=== PATIENT | female | born 1960 | race Caucasian/White ===

== ENCOUNTER 2017-01-07 10:58 | Day surgery (SDC) | payer OTHER ==
[~2017-01-07] VITALS: Ht 153.7 cm; Wt 99.8 kg
[~2017-01-07 10:58] MED LIST: 0.9% Sodium Chloride 1,000 ML IV SCH; AMLO5TAB2 PO; ASPI-973 PO; FLUT15.88 NS; MULT-666 PO; PRAV40TA PO; SOFO1TAB PO; Sodium Chloride LOK Flush 10 mL Syringe IV PRN; fentaNYL-PF 50 mCg/mL 2 mL Inj IVPUSH PRN
[2017-01-07 11:45] VITALS: BP 130/84; PULSE 72; RESP 16; O2SAT 96
[2017-01-07 12:24] VITALS: BP 120/77; PULSE 79; RESP 16; O2SAT 91
[2017-01-07 12:34] VITALS: BP 137/69; PULSE 88; RESP 16; O2SAT 93
[2017-01-07 12:39] VITALS: BP 139/72; PULSE 79; RESP 14; O2SAT 95
--- NOTE | 2017-01-07 14:19 | ENDO ---
[address] [address] ENDOSCOPY PROCEDURE PATIENT: MARTHA ROB : 1960 MR#: [id number] ADMIT: 01/07/2017 JOB ID: [id number] PROCEDURE: Esophagogastroduodenoscopy. INDICATION: Variceal screening. The patient's ASA classification is II. Mallampati score is II. MEDICATIONS: Versed 5 mg, fentanyl 100 mcg. INSTRUMENT USED: [id number]. PROCEDURE DETAILS: After informed consent was obtained, the patient was brought into the GI suite, where she was placed on oxygen via nasal cannula and monitored with continuous pulse oximeter, telemetry, and blood pressure monitoring. A time-out was performed. Then, she was placed in a left lateral decubitus position and medications were administered for sedation. A bite block was placed. Standard EGD scope was inserted through the bite block and advanced under direct visualization to the second portion of the duodenum without difficulty. FINDINGS: 1. Normal appearing duodenal bulb, first and second portion. 2. Normal appearing pylorus. 3. The mucosa in the antrum and body of the stomach had a mosaic appearance consistent with portal gastropathy. 4. Retroflexed views in the gastric body revealed no gastric varices. 5. The GE junction was slightly irregular at 41 cm. Just at the GE junction and extending up proximally, there were two linear areas of ulcerated mucosa suggestive of ulcerative esophagitis. The remainder of the esophagus otherwise unremarkable. IMPRESSION: 1. Portal gastropathy. 2. [place] class A ulcerative esophagitis. RECOMMENDATIONS: 1. Omeprazole 20 mg p.o. daily. 2. Reflux precautions. 3. Weight loss. COMPLICATIONS: None. ESTIMATED BLOOD LOSS: Zero.
== END 2017-01-07 23:59 | disposition home or self-care (01) ==
LOC: END 10:58
PROVIDERS: ATTEND Internal Medicine Gastroenterology
DX: K76.6 Portal hypertension (principal); K22.10 Ulcer of esophagus without bleeding; B18.2 Chronic viral hepatitis C; J30.9 Allergic rhinitis, unspecified; K74.60 Unspecified cirrhosis of liver; F10.20 Alcohol dependence, uncomplicated; Z79.82 Long term (current) use of aspirin; E66.01 Morbid (severe) obesity due to excess calories; Z68.41 Body mass index [BMI] 40.0-44.9, adult
CPT/HCPCS: 43235; G0500; J7030